=== PATIENT | male | born 2000 | race Caucasian/White ===

== ENCOUNTER 2024-09-15 20:12 | Emergency (ER) | payer SELFPAY ==
[~2024-09-15] VITALS: Ht 175.3 cm; Wt 122.5 kg
[2024-09-15 20:26] VITALS: BP_SYST 128; PULSE 60; RESP 20; TEMP 98; O2SAT 98
== END 2024-09-15 22:00 | disposition left against medical advice (07) ==
LOC: SED 20:12
DX: G43.909 Migraine, unspecified, not intractable, without status migrainosus (principal); Z53.21 Procedure and treatment not carried out due to patient leaving prior to being seen by health care provider